=== PATIENT | male | born 1945 | race Caucasian/White ===

== ENCOUNTER → 2016-05-12 | Outpatient (CLI) | payer MEDICARE | LOC: KOH-I 05-05 15:15 | DX: M54.5 Low back pain (principal); M51.36 Other intervertebral disc degeneration, lumbar region | CPT/HCPCS: 72148 ==

== ENCOUNTER → 2020-08-27 | Outpatient (CLI) | payer MEDICARE | LOC: KOH-I 07-21 09:45 | DX: I65.23 Occlusion and stenosis of bilateral carotid arteries (principal); L84 Corns and callosities | CPT/HCPCS: 93880 ==